=== PATIENT | female | born 1945 | race Caucasian/White ===

== ENCOUNTER → 2016-12-17 | Outpatient (CLI) | payer MEDICARE ==
[~2016-12-17] MED LIST: ACYC400T PO; ADVA250A INH; ASPI1TAB69 PO; ATOR40TA16 PO; FISHCAP4 PO; IRON18TA2 PO; LISI10TA3 PO; NEXI40CA PO; PERC10TA27 PO; RANI150T PO; SPIRCAP INH; SYMB160A INH; VITACAP7 PO
== END ==
LOC: CPRE 11:27
PROVIDERS: ATTEND Neurological Surgery
DX: Z01.818 Encounter for other preprocedural examination (principal); M51.16 Intervertebral disc disorders with radiculopathy, lumbar region; M51.36 Other intervertebral disc degeneration, lumbar region; Z98.890 Other specified postprocedural states

== ENCOUNTER → 2016-12-24 | Day surgery (SDC) | payer MEDICARE ==
--- NOTE | 2016-12-23 11:13 | MH ---
cc: IVONNE THURTSON MD, ROHIT K. M.D. DATE OF ADMISSION: 12/24/2016 ADMITTING DIAGNOSIS Herniated nucleus pulposus lumbar spine. HISTORY OF PRESENT ILLNESS This is a 71-year-old female who presented to us for evaluation of right paraspinal back pain radiating into the right anterior thigh past the knee and also into the groin. She states in January she woke up with soreness that progressively got worse to the point where she felt she could not walk. She has pain in the superior right buttocks radiating into the hip and anterior thigh into the knee. She states sometimes the pain radiates into the right groin. She has paresthesias in a similar distribution. She denies any left lower extremity symptoms. She has noticed the right leg feels weak and heavy like when she is getting into her car lifting the right leg is difficult. She denies any bowel or bladder incontinence. No falls. She had pain management and multiple injections and the last three helped two weeks ago. She has not had any PT. She states that sitting is the best position for her. Certain movements will exacerbate her pain. PAST MEDICAL HISTORY 1. COPD/emphysema. 2. Hypertension. 3. Hyperlipidemia. PAST SURGICAL HISTORY 1. Tonsillectomy in 8. 2. Hemorrhoidectomy in 1960. 3. Tubal ligation in 1976. 4. Lumpectomy in 1982. 5. Meniscus repair in 2009. MEDICATIONS Current medications: 1. Lisinopril 10 mg daily. 2. Zocor 40 mg daily. 3. Advair 250/50 b.i.d. 4. Spiriva HandiHaler 18 mg daily. 5. Acyclovir 400 mg, two tablets in the morning, two tablets at night every other day. 6. Zolpidem 5 mg q.h.s. 7. Iron 27 mg daily. 8. Calcium with vitamin-D 600 mg, two tablets daily. 9. Ecotrin 81 mg daily. 10. Fish oil 1000 mg, two tablets in the morning, two tablets at night. 11. Biotin 5000 mcg daily. 12. B12 2500 mg daily. ALLERGIES 1. PENICILLIN. 2. LEVAQUIN. FAMILY HISTORY Her mother is at [id number] with pneumonia. Her father is at [id number], had aortic valve stenosis. Her sister is alive at [id number]. She has another sister who is . She has a brother who is alive at 65, another brother alive at 60. 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 She is . She has one child. She does not smoke, although has previously smoked. She does not drink alcohol. REVIEW OF SYSTEMS CONSTITUTIONAL: She denies any fever or chills. EARS, NOSE, AND THROAT: No pharyngitis, exudates or bloody drainage from her nose. CARDIOVASCULAR: She denies any chest pain or palpitations. RESPIRATORY: Positive for cough and shortness of breath. GENITOURINARY: No dysuria or hematuria. MUSCULOSKELETAL: Positive for low back pain. SKIN: No rashes or pruritus. NEUROLOGIC: No difficulty with speech or memory. GASTROINTESTINAL: No nausea, vomiting, abdominal pain. PSYCHIATRIC: No anxiety or depression symptoms. ENDOCRINE: No polyuria or polydipsia. HEMATOLOGIC: Positive for bruising but no bleeding tendencies. PHYSICAL EXAMINATION HEAD: Normocephalic, atraumatic. NECK: Supple. No carotid bruits heard on auscultation. LUNGS: Clear to auscultation bilaterally. HEART: Regular rate and rhythm, normal sinus. ABDOMEN: Soft, nontender. Positive bowel sounds. SKIN: No cyanosis or erythema. MUSCULOSKELETAL: She has right iliopsoas weakness at 4-/5, otherwise her strength is 5/5 in the lower extremities. NEUROLOGIC: She is awake, alert and oriented. Cranial nerves II-XII appear grossly intact. Speech is fluent. Comprehension is good. Sensation is decreased in the right lateral thigh otherwise intact in the extremities. The left Achilles reflex is absent. The left patellar is diminished. Her reflexes on the right side are 2+ in the lower extremities. DATA REVIEW Reviewed an MRI of the lumbar spine from March 23, 2016 which reveals a right L2-L3 disc herniation with associated moderate spinal and foraminal stenosis. She also has an old left L5-S1 hemilaminotomy defect with severe disc degeneration and disc height collapse. IMPRESSION A 71-year-old female with a nine-month history of right paraspinal back pain radiating into the buttock and hip and anterior thigh and groin. She has noticed more proximal right lower extremity weakness. She has chronic left S1 area numbness with a remote history of lumbar spine surgery. She has a right L2-L3 disc herniation with moderate spinal foraminal stenosis. She has chronic L5 and S1 post laminectomy syndrome with advanced degenerative disc disease of what appears to be the L2-L3 level that is most symptomatic at this point. PLAN We have discussed the treatment options with the patient and she has tried physical therapy which aggravated her symptoms. We have discussed surgical options which would include a right L2-L3 microdiscectomy. The procedure as well as the risk, benefit, alternative and recovery time were explained in great detail with the patient. We have discussed the risks involved with surgery include but are not limited to bleeding, infection, muscle weakness, voice hoarseness, difficulty swallowing, heart attack, stroke, blood clots, scar tissue formation, disc re-herniation, among others. The patient states that she understands the procedure as well as the risks involved and she is requesting that we proceed, and she was therefore scheduled accordingly. Dictated by: Baldomero Echols PA-C MD ERIC San/JUDE /10:34 AM /10:55 AM
[~2016-12-24] VITALS: Ht 165.1 cm; Wt 74.2 kg
[~2016-12-24] MED LIST changes: +*morphine SULFATE 8 MG/ML PERIprocedure ONLY ONE; +ACETAMINOPHEN 1000 MG/100 ML VIAL IV ONE; +APREPITANT 40 MG CAP ONE; +BUPIVACAINE/EPINEPHRINE 0.5% PF 30 ML VIAL INFIL ONE; +DEXAMETHASONE SOD PHOS 4 MG/ML VIAL ONE; +DO NOT ADM ANY ANTICOAGULANT DRUGS XX PRN; +FAMOTIDINE 20 MG/2 ML VIAL ONE; +GELFOAM SIZE 100 ONE; +INSULIN HUMAN REGULAR 1,000 UNITS/10 ML VIAL SQ PRN; +LACTATED RINGER'S 1000 ML IV SCH; +METOPROLOL TARTRATE 25 MG TAB PO PRN; +MIDAZOLAM HCL 2 MG/2 ML VIAL ONE; +NEOSTIGMINE 3 MG/3 ML SYR IV ONE; +ONDANSETRON HCL 4 MG/2 ML VIAL IV PUSH ONE; +PROPOFOL 200 MG/20 ML AMP IV ONE; +RESP: ALBUTEROL CONC 2.5 MG/0.5 ML NEB ONE; +SODIUM CHLOR 0.9% 1000 ML INJ 1,000 ML IV SCH; +SODIUM CHLORID 0.9% 500 ML IV SCH; +THROMBIN (TOPICAL) 5,000 UNIT VIAL ONE; +VANCOMYCIN HCL 1000 MG ON-CALL/NS 250 ML IV SCH; +VANCOMYCIN HCL 1000 MG VIAL ONE; +ePHEDrine/NS 50 MG/5 ML SYR IV ONE; +fentaNYL CITRATE 250 MCG/5 ML AMP ONE; +methylPREDNISolone ACETATE 40 MG/ML VIAL ONE
[2016-12-24 06:34] VITALS: BP 152/71; PULSE 69; RESP 20; TEMP 98.1; O2SAT 93
--- NOTE | 2016-12-24 10:01 | PD.OP ---
Humberto Spann D.O. Operative Report Date of Surgery: Dec 24, 2016 Preoperative Diagnosis: Lumbar L2-3 spinal stenosis from disc herniation and facet/ligamentum flavum hypertrophy; low back pain with intractable radiculopathy Postoperative Diagnosis: Same Procedure: Right L2-3 decompressive laminotomy with medial facetectomy and microdiscectomy Anesthesia: Gen. endotracheal by Thuan Davis Surgeon: Chandrakant Gr M.D. Ram Car Operator(s): Nahomy Yates Operation and Findings: Following administration of general endotracheal anesthesia, patient received vancomycin 1 g intravenously. Sequential compression devices were placed for DVT prophylaxis. She was then turned in prone position on Bethel frame and the Elijah table and all pressure points adequately padded. The lumbar region was then shaved and prepped with a Betadine and ChloraPrep. Sterile draping undertaken with Ioban. Midline incision overlying the L2-3 level was then made after infiltrating the skin with 0.5% Marcaine with epinephrine solution. The skin incision was made extending down through the fascia and then using the subperiosteal plane on the right side the muscular attachments to the spinous process and lamina were detached. Intraoperative fluoroscopy was used for level confirmation and further dissection undertaken using microtechnique with microscope magnification. The inferior portion of the L2 and superior portion of the L3 lamina were then drilled out and the underlying ligamentum flavum also removed. There was facet arthropathy noted and the medial portion of facet was also resected and the lateral recess decompressed. Epidural venous stasis which he with the bipolar cautery along with Gelfoam and thrombin and bone wax used at the laminotomy edges for hemostasis. The thecal sac was then gently retracted with a nerve root retractor and an extruded disc fragment was identified. Fragments were removed with pituitary forceps and the nerve root impingement along with thecal sac compression decompressed. The area was then copiously irrigated with vancomycin solution. The retractors removed and the muscle fascia proximal using 2-0 Vicryl interrupted stitches. 3-0 Vicryl subcuticular stitches were also placed in an interrupted fashion and planned skin closure was with Mastisol and Steri-Strips. A sterile dressing was then applied and the patient then turned in the supine position and extubated and taken to recovery room in stable condition. There were no intraoperative complications and all sponge and needle count was correct at the end of the procedure. Estimated blood loss about 10ml. Chandrakant Gr MD Dec 24, 2016 10:01
[2016-12-24 11:00] VITALS: BP 150/71; PULSE 77; RESP 16; TEMP 97.8; O2SAT 93
--- NOTE | 2016-12-24 14:16 | RADRPT ---
EXAM DATE/TIME: 12/24/2016 08:17 [facility] COMPARISON: No previous studies available for comparison. INDICATIONS : Level Localization L2,L3. MEDICAL HISTORY : None. SURGICAL HISTORY : None. ENCOUNTER: Initial ACUITY: 1 day PAIN SCORE: Non-responsive. LOCATION: Lumbar spine. FINDINGS: A single lateral view of the lumbar spine was performed. There is normal alignment of the vertebral bodies without evidence of subluxation. Vertebral body height and disc space height is maintained. P osterior marker on matrix this projects towards the L2-3 disc space CONCLUSION: Posterior marker projecting towards the L2-3 disc space Juanjo Perea MD on December 24, 2016 at 14:14 Board Certified Radiologist. This report was verified electronically.
--- NOTE | 2016-12-24 16:37 | EKG ---
Date Performed: 12/24/2016 Time Performed: 06:46:08 PTAGE: 71 years EKG: Sinus rhythm WITH FIRST DEGREE AV BLOCK ABNORMAL ECG NO PREVIOUS TRACING DOCTOR: Nicky Wagner Interpretating Date/Time 12/24/2016 16:34:14
== END | disposition home or self-care (01) ==
LOC: HSDC 05:21 → EDUNIT# 08:00
PROVIDERS: ATTEND Neurological Surgery
DX: M51.16 Intervertebral disc disorders with radiculopathy, lumbar region (principal); M48.06 Spinal stenosis, lumbar region; M96.1 Postlaminectomy syndrome, not elsewhere classified; I10 Essential (primary) hypertension; R94.31 Abnormal electrocardiogram [ECG] [EKG]; J44.9 Chronic obstructive pulmonary disease, unspecified; E78.5 Hyperlipidemia, unspecified; Z79.82 Long term (current) use of aspirin; Z87.891 Personal history of nicotine dependence; Z88.0 Allergy status to penicillin
CPT/HCPCS: 00630; 63030; 72020; 76000; 93005; J0131; J1030; J1100; J2250; J2270; J2405; J2710; J3010; J3370; J7050; J7120; J7611; J8501